=== PATIENT | male | born 1985 | race Caucasian/White ===

== ENCOUNTER 2024-04-13 04:09 | Emergency (ER) | payer BC, MEDICAID ==
[2024-04-13] MEDS: droPERidol 5 MG/2 ML SDV IVPUSH ONE (04:56)
[2024-04-13] MEDS: Lactated Ringers 1,000 ML IV SCH (04:56)
[2024-04-13] MEDS: Glucagon,Human Recombinant 1 MG Vial IV ONE (04:56)
== END 2024-04-13 05:02 | disposition home or self-care (01) ==
LOC: JP.ED 04:09
DX: T18.108A Unspecified foreign body in esophagus causing other injury, initial encounter (principal); Z88.1 Allergy status to other antibiotic agents; W44.9XXA Unspecified foreign body entering into or through a natural orifice, initial encounter
CPT/HCPCS: 99284

== ENCOUNTER 2025-05-07 06:38 | Day surgery (SDC) | payer BC ==
[2025-05-07] MEDS: Lactated Ringers 1,000 ML IV SCH (06:57)
[2025-05-07] MEDS ORDERED: fentaNYL 100 MCG/2 ML SDV ONE (07:17)
[2025-05-07] MEDS ORDERED: Propofol 200 MG/20 ML SDV ONE ×3 (07:17→08:28)
[2025-05-07] MEDS ORDERED: Midazolam 1 MG/ML 2 ML SDV ONE (07:17)
== END 2025-05-07 09:53 | disposition home or self-care (01) ==
LOC: JP.SDS 06:38
PROVIDERS: ATTEND Surgery
DX: K22.10 Ulcer of esophagus without bleeding (principal); K92.2 Gastrointestinal hemorrhage, unspecified; K63.89 Other specified diseases of intestine; K64.9 Unspecified hemorrhoids; Z88.8 Allergy status to other drugs, medicaments and biological substances
CPT/HCPCS: 00813; 43239; 45380; 45398; J2250; J2704; J3010; J7120; 88305; 88312; 88341; 88342

== ENCOUNTER 2025-06-09 06:20 | Day surgery (SDC) | payer BC ==
[2025-06-09] MEDS: metroNIDAZOLE/Normal Saline 500 MG in Premix Bag 1 BAG IV ONE (07:01)
[2025-06-09] MEDS ORDERED: Ondansetron 4 MG/2 ML SDV ONE (07:06)
[2025-06-09] MEDS ORDERED: Succinylcholine 200 MG/10 ML MDV ONE (07:06)
[2025-06-09] MEDS ORDERED: fentaNYL 250 MCG/5 ML SDV ONE (07:06)
[2025-06-09] MEDS ORDERED: Glycopyrrolate 0.2 MG/ML 5 ML MDV ONE (07:06)
[2025-06-09] MEDS ORDERED: Dexamethasone 4 MG/ML SDV ONE (07:06)
[2025-06-09] MEDS ORDERED: Propofol 200 MG/20 ML SDV ONE (07:06)
[2025-06-09 07:35] LABS: PLATELET COUNT,PLT 72.0 K/uL (130-375); RED BLOOD CELL COUNT 5.2 M/uL (4.14-5.76); WHITE BLOOD CELL COUNT,WBC 7.4 K/uL (3.2-11.0)
[2025-06-09 07:59] LABS: A/G RATIO 1.2 (1.2-2.2); ALANINE AMINOTRANSFERASE,ALT 38 U/L (12-78); ASPARTATE AMNIOTRANSFERASE,AST 24 U/L (15-37); BILIRUBIN TOTAL 0.9 mg/dL (0.2-1.0); BLOOD UREA NITROGEN,BUN 13 mg/dL (7-18); CARBON DIOXIDE,CO2 30 mmol/L (21-32); CHLORIDE,CL 103 mmol/L (100-108); CREATININE 1.1 mg/dL (0.8-1.3); EST CRCL DRUG DOSING (CG) 98.96 mL/min; ESTIMATED GFR 88 mL/min (>60); GLUCOSE RANDOM 105 mg/dL (74-106); POTASSIUM,K 3.9 mmol/L (3.6-5.2); PROTEIN TOTAL,TP 7.0 g/dL (6.4-8.2); SODIUM,NA 140 mmol/L (140-148)
[2025-06-09] MEDS ORDERED: fentaNYL 100 MCG/2 ML SDV ONE (08:24)
[2025-06-09] MEDS: Methylene Blue 100 MG/10 ML SDV ONE (09:05)
[2025-06-09] MEDS: Indocyanine Green 25 MG SDV ONE (09:10)
[2025-06-09] MEDS ORDERED: Ondansetron 4 MG/2 ML SDV IVPUSH ONE (11:02)
== END 2025-06-09 12:47 | disposition home or self-care (01) ==
LOC: JP.SDS 06:20
PROVIDERS: ATTEND Surgery
DX: K35.80 Unspecified acute appendicitis (principal); D69.6 Thrombocytopenia, unspecified; Z88.8 Allergy status to other drugs, medicaments and biological substances
CPT/HCPCS: 00840; 36415; 44970; 80053; 85027; 87070; 87075; 87077; 87186; 87205; 88304; J0169; J0330; J0665; J0690; J1100; J1596; J1836; J2405; J2704; J2710; J2795; J3010; J7030; Q9968; J3490